=== PATIENT | female | born 2000 | race Caucasian/White ===

== ENCOUNTER 2020-08-18 16:51 | Inpatient (IN) | payer OTHER ==
[~2020-08-18] VITALS: Ht 149.9 cm; Wt 52.7 kg
[2020-08-18 19:26] LABS: COVID AG,FIA SOURCE NASOPHARYNGEAL
[2020-08-18] MEDS ORDERED: ACETAMINOPHEN 325 MG TABLET PO PRN (20:00)
[2020-08-18 20:12] LABS: BASOPHILS % (AUTO) 0.4 % (0.0-2.0); EOSINOPHILS % (AUTO) 0.5 % (1.0-6.0); HEMATOCRIT 30.9 % (36-46); HEMOGLOBIN 10.6 g/dL (12.0-16.0); LYMPHOCYTES # (AUTO) 2.1 K/uL (1.0-4.8); LYMPHOCYTES % (AUTO) 20.4 % (22.0-44.0); MEAN CORPUSCULAR HEMOGLOBIN 33.3 pg (26.0-34.0); MEAN CORPUSCULAR HGB CONC 34.3 G/dL (31.0-37.0); MEAN CORPUSCULAR VOLUME 97 fL (80-100); MONOCYTES # (AUTO) 0.7 K/uL (0.1-1.0); MONOCYTES % (AUTO) 6.4 % (2.0-9.0); NEUTROPHILS # (AUTO) 7.6 K/uL (1.8-7.7); NEUTROPHILS % (AUTO) 72.3 % (40.0-70.0); PLATELET COUNT (AUTO) 291 K/uL (150-450); RED BLOOD CELL COUNT(AUTO) 3.19 MIL/uL (4.00-5.20); RED CELL DISTRIBUTION WIDTH 14.9 % (11.5-14.5)
[2020-08-18 20:17] LABS: ANION GAP 10 mmol/L (8-16); CALCIUM, TOTAL 8.7 mg/dL (8.8-10.5); CARBON DIOXIDE 26 mmol/L (22-29); CHLORIDE 104 mmol/L (98-107); CREATININE 0.46 mg/dL (0.60-1.30); GLOMERULAR FILTR. RATE CALC > 60 mL/min (>60); GLUCOSE,RANDOM 88 mg/dL (70-110); SODIUM SERUM 140 mmol/L (136-145); UREA NITROGEN, BLOOD 6 mg/dL (7-18)
[2020-08-18 20:46] LABS: ALANINE AMINOTRANSFERASE 22 U/L (12-78); ALBUMIN 3.2 g/dL (3.4-5.0); ALKALINE PHOSPHATASE 92 U/L (46-116); ASPARTATE AMINOTRANSFERASE 21 U/L (15-37); BILIRUBIN,TOTAL 0.3 mg/dL (0.1-1.0); HCG,QUANTITATIVE 13981 mIU/mL (0-6); TOTAL PROTEIN, SERUM 7.2 g/dL (6.4-8.2)
[2020-08-18 22:36] VITALS: BP 103/58
[2020-08-19] MEDS: PRENATAL NO.137/IRON/FOLIC ACID TABLET PO SCH (09:01)
[2020-08-20] MEDS ORDERED: FERROUS SULFATE 325 MG EC TABLET PO SCH (08:00)
[2020-08-20 08:30] VITALS: BP 101/41
[2020-08-20] MEDS: PRENATAL NO.137/IRON/FOLIC ACID TABLET PO SCH (09:24)
[2020-08-21 06:06] LABS: QUANTIFERON, TB GOLD PLUS Negative (Negative)
[2020-08-21] MEDS: PRENATAL NO.137/IRON/FOLIC ACID TABLET PO SCH ×2 (08:37→09:54)
[2020-08-21] MEDS ORDERED: FERR-89 PO (12:26)
[2020-08-21] MEDS ORDERED: PREN-217 PO (12:27)
[2020-08-21] MEDS ORDERED: ACET-2247 PO (12:28)
== END 2020-08-21 16:20 | DRG 833 ==
LOC: EMS 16:52 → OBSVTOIN 18:58 → 4S 18:58
PROVIDERS: ADMIT Internal Medicine; ATTEND Internal Medicine
DX: O26.892 Other specified pregnancy related conditions, second trimester (principal); Z3A.22 22 weeks gestation of pregnancy; R05 Cough; Z20.822 Contact with and (suspected) exposure to COVID-19
CPT/HCPCS: 76805; 80053; 84443; 84702; 85025; 86480; 87015; 87206; 99285; 36415-L1; 36415-TC; U0003